=== PATIENT | female | born 1930 | race Caucasian/White ===

== ENCOUNTER 2017-07-18 06:42 | Emergency (ER) | payer MEDICARE ==
[~2017-07-18] VITALS: Ht 162.6 cm; Wt 80.0 kg
[2017-07-18 07:22] VITALS: BP 132/87
== END 2017-07-18 09:50 | disposition home or self-care (01) ==
LOC: ER 06:42
DX: B37.49 Other urogenital candidiasis (principal); B37.89 Other sites of candidiasis; F41.9 Anxiety disorder, unspecified; I10 Essential (primary) hypertension; K21.9 Gastro-esophageal reflux disease without esophagitis; Z90.710 Acquired absence of both cervix and uterus
CPT/HCPCS: 99283

== ENCOUNTER 2017-12-02 14:45 | Emergency (ER) | payer MEDICARE, MEDICAID ==
[~2017-12-02] VITALS: Ht 162.6 cm; Wt 58.0 kg
[2017-12-02 17:01] VITALS: BP 106/60
== END 2017-12-02 17:02 | disposition left against medical advice (07) ==
LOC: ER 15:00
DX: Z53.21 Procedure and treatment not carried out due to patient leaving prior to being seen by health care provider (principal)

== ENCOUNTER 2018-04-25 10:14 | Inpatient (IN) | payer MEDICARE, MEDICAID ==
[~2018-04-25] VITALS: Ht 162.6 cm; Wt 41.7 kg
[2018-04-25] MEDS ORDERED: MELA3TAB PO (10:36)
[2018-04-25] MEDS ORDERED: LISI-604 PO (10:36)
[2018-04-25] MEDS ORDERED: GABA-533 PO (10:36)
[2018-04-25] MEDS ORDERED: TRAM50TA94 PO (10:36)
[2018-04-25] MEDS ORDERED: FAMO-135 PO (10:36)
[2018-04-25] MEDS ORDERED: NITR0.4T SL (10:36)
[2018-04-25] MEDS ORDERED: SODIUM CHLORIDE 0.9% 1,000 ML IV ONE ×2 (10:58→13:15)
[2018-04-25 11:17] LABS: HEMATOCRIT. 35.3 % (36.0-48.0); HEMOGLOBIN. 11.6 g/dL (12.0-16.0); MEAN CORPUSCULAR HEMOGLOBIN 30.9 pg (28.0-32.0); MEAN CORPUSCULAR VOLUME 93.9 fL (81.0-99.0); MEAN PLATELET VOLUME 8.8 fl (7.4-10.4); PLATELET 158 x1000/uL (130-400); RED BLOOD CELL COUNT 3.75 mill/uL (4.2-5.4); RED CELL DISTRIBUTION WIDTH 15.9 % (11.6-14.6)
[2018-04-25 11:24] LABS: CHLORIDE 103 mEq/L (98-107)
[2018-04-25 11:35] LABS: PLATELET ESTIMATE NORMAL
[2018-04-25] MEDS ORDERED: ONDANSETRON HCL 4MG/2ML INJ IV PRN (11:45)
[2018-04-25] MEDS ORDERED: ENOXAPARIN 40MG/0.4ML SYR SUBCUT SCH (11:45)
[2018-04-25] MEDS ORDERED: VANCOMYCIN 1 G PREMIX 200 ML IV SCH (11:45)
[2018-04-25] MEDS ORDERED: IPRATROPIUM/ALBUTEROL 0.5-3(2.5)MG/3ML NEB HHN SCH (11:45)
[2018-04-25] MEDS ORDERED: PIPERACILLIN/TAZ 3.375G PREMIX 50 ML IV SCH (11:45)
[2018-04-25] MEDS ORDERED: NITROGLYCERIN 0.4MG TABLET SL SL PRN (11:45)
[2018-04-25] MEDS ORDERED: IPRATROPIUM/ALBUTEROL 0.5-3(2.5)MG/3ML NEB INH PRN (11:45)
[2018-04-25] MEDS ORDERED: DOCUSATE SODIUM 100MG CAPSULE PO PRN (11:45)
[2018-04-25] MEDS ORDERED: GUAIFENESIN 200MG/10ML SUGAR FREE UDC PO PRN (11:45)
[2018-04-25] MEDS ORDERED: MAGNESIUM/ALUMINUM HYDROXIDE/SIMETHICONE 30ML UDC PO PRN (11:45)
[2018-04-25] MEDS ORDERED: CEFTRIAXONE 1 G PREMIX 50 ML IV ONE (13:15)
[2018-04-25 13:47] LABS: CLARITY URINE CLOUDY (CLEAR); COLOR URINE YELLOW (YELLOW); KETONES URINE TRACE (NEGATIVE); LEUKOCYTE ESTERASE URINE 3+ (NEGATIVE); NITRITE URINE POSITIVE (NEGATIVE); OCCULT BLOOD URINE 2+ (NEGATIVE); PH URINE 5.5 (4.5-8.0); PROTEIN URINE 1+ (NEGATIVE); SPECIFIC GRAVITY URINE 1.015 (1.005-1.030); UROBILINOGEN URINE 0.2 E.U./dL (0.2-1.0)
[2018-04-25] MEDS ORDERED: PIPERACILLIN/TAZ 3.375G PREMIX 50 ML IV NR (13:51)
[2018-04-25] MEDS ORDERED: METHYLPREDNISOLONE SOD SUCC 125 MG/2 ML VIAL IV NR (13:51)
[2018-04-25] MEDS ORDERED: KETOROLAC 15MG/ML VIAL IV PRN (16:22)
[2018-04-25] MEDS ORDERED: TRAMADOL 50MG TABLET PO PRN (16:30)
[2018-04-25 17:19] LABS: CREATINE KINASE MB FRACTION 1.3 ng/mL (0.5-3.6)
[2018-04-25] MEDS: METHYLPREDNISOLONE SOD SUCC 125 MG/2 ML VIAL IV SCH (18:55)
[2018-04-25 20:00] VITALS: BP 139/70
[2018-04-25] MEDS ORDERED: VANCOMYCIN 1500MG in DEXTROSE 5% WATER 250ML IV NR (20:00)
[2018-04-25] MEDS: GUAIFENESIN/DM 600MG/30MG ER TAB 12HR PO SCH (21:00)
[2018-04-25] MEDS: ASCORBIC ACID 500 MG TABLET PO SCH (21:00)
[2018-04-25] MEDS ORDERED: FAMOTIDINE 20MG TABLET PO SCH (21:00)
[2018-04-25] MEDS ORDERED: NA PHOS,M-B/NA PHOS,DI-BA ENEMA 118ML PR PRN (21:00)
[2018-04-25] MEDS: ENOXAPARIN 30MG/0.3ML SYR SUBCUT SCH (21:21)
[2018-04-25] MEDS: IPRATROPIUM/ALBUTEROL 0.5-3(2.5)MG/3ML NEB HHN SCH (21:46)
[2018-04-25] MEDS: PIPERACILLIN/TAZ 2.25G PREMIX 50 ML IV SCH (22:17)
[2018-04-25] MEDS ORDERED: POLY15DR55 EACHEYE (22:41)
[2018-04-25] MEDS ORDERED: HYDR-4001 MT (22:41)
[2018-04-25] MEDS ORDERED: DOCU-138 MT (22:41)
[2018-04-25] MEDS ORDERED: ACET-2178 MT (22:41)
[2018-04-25] MEDS ORDERED: LIDO700A30 TP (22:41)
[2018-04-26] VITALS: BP 110/55
[2018-04-26 00:55] LABS: CREATINE KINASE MB FRACTION 1.5 ng/mL (0.5-3.6)
[2018-04-26] MEDS: IPRATROPIUM/ALBUTEROL 0.5-3(2.5)MG/3ML NEB HHN SCH ×6 (01:23→20:10)
[2018-04-26] MEDS: METHYLPREDNISOLONE SOD SUCC 125 MG/2 ML VIAL IV SCH ×3 (02:18→18:50)
[2018-04-26 04:00] VITALS: BP 126/50
[2018-04-26] MEDS: PIPERACILLIN/TAZ 2.25G PREMIX 50 ML IV SCH ×4 (04:05→22:47)
[2018-04-26 08:00] VITALS: BP 132/103
[2018-04-26] MEDS: ASCORBIC ACID 500 MG TABLET PO SCH ×2 (08:55→20:30)
[2018-04-26] MEDS: GUAIFENESIN/DM 600MG/30MG ER TAB 12HR PO SCH ×2 (08:55→20:30)
[2018-04-26] MEDS: ASPIRIN 325MG EC TABLET PO SCH (08:55)
[2018-04-26] MEDS: ZINC SULFATE 220 MG ( 50 ) CAPSULE PO SCH (08:55)
[2018-04-26] MEDS: FAMOTIDINE 20MG TABLET PO SCH (08:56)
[2018-04-26 12:00] VITALS: BP 112/69
[2018-04-26 16:00] VITALS: BP 117/45
[2018-04-26 20:00] VITALS: BP 133/66
[2018-04-26] MEDS: ENOXAPARIN 30MG/0.3ML SYR SUBCUT SCH (20:30)
[2018-04-26] MEDS: MORPHINE SULFATE 4 MG/ML CPJ (NOT FOR IM USE) IV PRN (23:33)
[2018-04-27] VITALS: BP 126/67
[2018-04-27] MEDS: IPRATROPIUM/ALBUTEROL 0.5-3(2.5)MG/3ML NEB HHN SCH ×6 (00:51→20:58)
[2018-04-27] MEDS: METHYLPREDNISOLONE SOD SUCC 125 MG/2 ML VIAL IV SCH ×3 (02:11→18:08)
[2018-04-27 04:00] VITALS: BP 140/76
[2018-04-27] MEDS: PIPERACILLIN/TAZ 2.25G PREMIX 50 ML IV SCH ×2 (05:26→10:38)
[2018-04-27] MEDS: LORAZEPAM 0.5MG TABLET PO PRN (05:26)
[2018-04-27 07:22] LABS: HEMATOCRIT. 32.6 % (36.0-48.0); HEMOGLOBIN. 10.9 g/dL (12.0-16.0); MEAN CORPUSCULAR HEMOGLOBIN 31.1 pg (28.0-32.0); MEAN CORPUSCULAR VOLUME 92.8 fL (81.0-99.0); MEAN PLATELET VOLUME 9.5 fl (7.4-10.4); PLATELET 165 x1000/uL (130-400); RED BLOOD CELL COUNT 3.51 mill/uL (4.2-5.4); RED CELL DISTRIBUTION WIDTH 15.7 % (11.6-14.6)
[2018-04-27 08:24] VITALS: BP 140/59
[2018-04-27] MEDS: ASPIRIN 325MG EC TABLET PO SCH (08:56)
[2018-04-27] MEDS: GUAIFENESIN/DM 600MG/30MG ER TAB 12HR PO SCH ×2 (08:56→22:13)
[2018-04-27] MEDS: ASCORBIC ACID 500 MG TABLET PO SCH ×2 (08:56→20:59)
[2018-04-27] MEDS: ZINC SULFATE 220 MG ( 50 ) CAPSULE PO SCH (08:57)
[2018-04-27] MEDS: FAMOTIDINE 20MG TABLET PO SCH (08:57)
[2018-04-27 12:14] VITALS: BP 146/84
[2018-04-27] MEDS: MEROPENEM 1,000 MG in SODIUM CHLORIDE 0.9% 100 ML IV SCH (16:25)
[2018-04-27 16:31] VITALS: BP 155/77
[2018-04-27 17:03] LABS: PLATELET ESTIMATE NORMAL
[2018-04-27 20:39] VITALS: BP 153/72
[2018-04-27] MEDS: ENOXAPARIN 40MG/0.4ML SYR SUBCUT SCH (20:59)
[2018-04-27] MEDS: ZOLPIDEM TARTRATE 5MG TABLET PO PRN (20:59)
[2018-04-27] MEDS: DIPHENHYDRAMINE 50MG/ML VIAL IV PRN (23:47)
[2018-04-27] MEDS: MORPHINE SULFATE 4 MG/ML CPJ (NOT FOR IM USE) IV PRN (23:48)
[2018-04-28] VITALS: BP_SYST 150; BP_SYST 153; BP_DIAS 61; BP_DIAS 77
[2018-04-28] MEDS: LORAZEPAM 0.5MG TABLET PO PRN ×3 (01:55→18:31)
[2018-04-28] MEDS: METHYLPREDNISOLONE SOD SUCC 125 MG/2 ML VIAL IV SCH ×3 (03:04→18:31)
[2018-04-28] MEDS: MEROPENEM 1,000 MG in SODIUM CHLORIDE 0.9% 100 ML IV SCH ×2 (03:04→16:44)
[2018-04-28 04:00] VITALS: BP 153/77
[2018-04-28] MEDS: IPRATROPIUM/ALBUTEROL 0.5-3(2.5)MG/3ML NEB HHN SCH ×6 (04:18→22:06)
[2018-04-28 06:50] LABS: HEMATOCRIT. 33.1 % (36.0-48.0); HEMOGLOBIN. 11.1 g/dL (12.0-16.0); MEAN CORPUSCULAR HEMOGLOBIN 30.8 pg (28.0-32.0); MEAN CORPUSCULAR VOLUME 92.3 fL (81.0-99.0); MEAN PLATELET VOLUME 9.3 fl (7.4-10.4); PLATELET 186 x1000/uL (130-400); RED BLOOD CELL COUNT 3.59 mill/uL (4.2-5.4); RED CELL DISTRIBUTION WIDTH 15.8 % (11.6-14.6)
[2018-04-28 08:00] VITALS: BP 151/73
[2018-04-28 08:05] VITALS: BP 151/73
[2018-04-28] MEDS: ZINC SULFATE 220 MG ( 50 ) CAPSULE PO SCH (08:44)
[2018-04-28] MEDS: FAMOTIDINE 20MG TABLET PO SCH (08:44)
[2018-04-28] MEDS: ASCORBIC ACID 500 MG TABLET PO SCH ×2 (08:44→21:04)
[2018-04-28] MEDS: GUAIFENESIN/DM 600MG/30MG ER TAB 12HR PO SCH ×2 (08:45→21:04)
[2018-04-28] MEDS: ASPIRIN 325MG EC TABLET PO SCH (08:45)
[2018-04-28 16:32] VITALS: BP 175/94
[2018-04-28 18:58] LABS: PLATELET ESTIMATE NORMAL
[2018-04-28 20:00] VITALS: BP 102/45
[2018-04-28] MEDS: ENOXAPARIN 40MG/0.4ML SYR SUBCUT SCH (21:05)
[2018-04-29 00:17] VITALS: BP 105/48
[2018-04-29] MEDS: IPRATROPIUM/ALBUTEROL 0.5-3(2.5)MG/3ML NEB HHN SCH ×4 (01:41→20:53)
[2018-04-29] MEDS: METHYLPREDNISOLONE SOD SUCC 125 MG/2 ML VIAL IV SCH ×3 (03:42→18:35)
[2018-04-29] MEDS: MEROPENEM 1,000 MG in SODIUM CHLORIDE 0.9% 100 ML IV SCH ×2 (03:43→16:41)
[2018-04-29 07:52] VITALS: BP 177/117
[2018-04-29] MEDS: ASCORBIC ACID 500 MG TABLET PO SCH ×2 (08:24→20:49)
[2018-04-29] MEDS: GUAIFENESIN/DM 600MG/30MG ER TAB 12HR PO SCH ×3 (08:24→20:49)
[2018-04-29] MEDS: ZINC SULFATE 220 MG ( 50 ) CAPSULE PO SCH (08:24)
[2018-04-29] MEDS: LORAZEPAM 0.5MG TABLET PO PRN ×3 (08:24→18:24)
[2018-04-29] MEDS: FAMOTIDINE 20MG TABLET PO SCH (08:24)
[2018-04-29] MEDS: ASPIRIN 325MG EC TABLET PO SCH (08:24)
[2018-04-29 11:54] VITALS: BP 176/110
[2018-04-29 16:26] VITALS: BP 168/86
[2018-04-29 20:00] VITALS: BP 159/92
[2018-04-29] MEDS: DIPHENHYDRAMINE 50MG/ML VIAL IV PRN (20:49)
[2018-04-29] MEDS: ENOXAPARIN 40MG/0.4ML SYR SUBCUT SCH (20:49)
[2018-04-29] MEDS: ZOLPIDEM TARTRATE 5MG TABLET PO PRN (23:57)
[2018-04-30 00:15] VITALS: BP 173/106
[2018-04-30] MEDS: CLONIDINE 0.1MG TABLET PO PRN ×4 (00:35→20:44)
[2018-04-30] MEDS: IPRATROPIUM/ALBUTEROL 0.5-3(2.5)MG/3ML NEB HHN SCH ×6 (00:58→21:10)
[2018-04-30 04:00] VITALS: BP 172/91
[2018-04-30] MEDS: METHYLPREDNISOLONE SOD SUCC 125 MG/2 ML VIAL IV SCH ×3 (04:08→19:57)
[2018-04-30] MEDS: MEROPENEM 1,000 MG in SODIUM CHLORIDE 0.9% 100 ML IV SCH ×2 (04:09→16:08)
[2018-04-30 07:35] LABS: HEMATOCRIT. 35.7 % (36.0-48.0); HEMOGLOBIN. 11.9 g/dL (12.0-16.0); MEAN CORPUSCULAR HEMOGLOBIN 30.7 pg (28.0-32.0); MEAN CORPUSCULAR VOLUME 92.2 fL (81.0-99.0); MEAN PLATELET VOLUME 8.9 fl (7.4-10.4); PLATELET 251 x1000/uL (130-400); RED BLOOD CELL COUNT 3.87 mill/uL (4.2-5.4)
[2018-04-30] MEDS: ASPIRIN 325MG EC TABLET PO SCH (08:28)
[2018-04-30] MEDS: FAMOTIDINE 20MG TABLET PO SCH (08:28)
[2018-04-30] MEDS: ZINC SULFATE 220 MG ( 50 ) CAPSULE PO SCH (08:28)
[2018-04-30] MEDS: ASCORBIC ACID 500 MG TABLET PO SCH ×2 (08:28→20:00)
[2018-04-30] MEDS: GUAIFENESIN/DM 600MG/30MG ER TAB 12HR PO SCH ×2 (08:29→20:00)
[2018-04-30 12:00] VITALS: BP 162/100
[2018-04-30 16:00] VITALS: BP 139/82
[2018-04-30 16:06] LABS: PLATELET ESTIMATE NORMAL
[2018-04-30] MEDS: DIPHENHYDRAMINE 50MG/ML VIAL IV PRN (19:59)
[2018-04-30 20:00] VITALS: BP 171/85
[2018-04-30] MEDS: ENOXAPARIN 40MG/0.4ML SYR SUBCUT SCH (20:00)
[2018-04-30] MEDS: ACETAMINOPHEN 325MG TABLET PO PRN (20:44)
[2018-05-01] MEDS: IPRATROPIUM/ALBUTEROL 0.5-3(2.5)MG/3ML NEB HHN SCH ×4 (00:17→12:57)
[2018-05-01 00:23] VITALS: BP 142/83
[2018-05-01 04:00] VITALS: BP 122/74
[2018-05-01] MEDS: METHYLPREDNISOLONE SOD SUCC 125 MG/2 ML VIAL IV SCH ×2 (04:01→11:29)
[2018-05-01] MEDS: MEROPENEM 1,000 MG in SODIUM CHLORIDE 0.9% 100 ML IV SCH ×2 (04:01→15:49)
[2018-05-01 08:12] VITALS: BP 156/94
[2018-05-01] MEDS: ASCORBIC ACID 500 MG TABLET PO SCH (10:39)
[2018-05-01] MEDS: FAMOTIDINE 20MG TABLET PO SCH (10:39)
[2018-05-01] MEDS: GUAIFENESIN/DM 600MG/30MG ER TAB 12HR PO SCH (10:39)
[2018-05-01] MEDS: ZINC SULFATE 220 MG ( 50 ) CAPSULE PO SCH (10:39)
[2018-05-01] MEDS: ASPIRIN 325MG EC TABLET PO SCH (10:39)
[2018-05-01] MEDS: ACETAMINOPHEN 325MG TABLET PO PRN (10:41)
[2018-05-01 12:00] VITALS: BP 159/90
[2018-05-01] MEDS ORDERED: LIDOCAINE HCL 1% 10 MG/ML 10ML VIAL ONE (14:38)
[2018-05-01] MEDS ORDERED: SODIUM BICARBONATE 4% (2.4MEQ) 5ML VIAL IV ONE (14:38)
[2018-05-01 14:41] VITALS: BP 159/96
[2018-05-01] MEDS: CLONIDINE 0.1MG TABLET PO PRN (16:22)
== END 2018-05-01 17:26 | DRG 871 ==
LOC: ER 10:14 → EDBEDREQSVC 13:00 → 6WST 13:12 → EDBEDREQ 13:15 → EDBEDREQTM 13:15 → ENRESERV 17:18 → CANRESERV 17:18 → ENRESERV 17:33
PROVIDERS: ADMIT Internal Medicine; ATTEND Internal Medicine
PROC: 02HV33Z Insertion of Infusion Device into Superior Vena Cava, Percutaneous Approach (ICD-10-PCS; principal; 2018-05-01)
PROC: B548ZZA Ultrasonography of Superior Vena Cava, Guidance (ICD-10-PCS; 2018-05-01)
DX: A41.51 Sepsis due to Escherichia coli [E. coli] (principal); J96.00 Acute respiratory failure, unspecified whether with hypoxia or hypercapnia; G92 Toxic encephalopathy; N17.0 Acute kidney failure with tubular necrosis; J18.9 Pneumonia, unspecified organism; J44.1 Chronic obstructive pulmonary disease with (acute) exacerbation; J44.0 Chronic obstructive pulmonary disease with (acute) lower respiratory infection; E44.1 Mild protein-calorie malnutrition; N39.0 Urinary tract infection, site not specified; Z68.1 Body mass index [BMI] 19.9 or less, adult; E66.9 Obesity, unspecified; L98.8 Other specified disorders of the skin and subcutaneous tissue; I10 Essential (primary) hypertension; M19.90 Unspecified osteoarthritis, unspecified site; E86.0 Dehydration; K21.9 Gastro-esophageal reflux disease without esophagitis; Z79.899 Other long term (current) drug therapy
CPT/HCPCS: 36415; 36569; 70450; 71045; 76937; 80048; 80053; 80061; 81003; 82550; 82553; 83036; 84134; 84484; 85025; 87040; 87077; 87086; 87186; 93005; 93306; 93970; 94640; 96374; 96375; 99285; A6261; C1725; C1893; J0696; J1200; J1650; J1885; J2185; J2270; J2543; J2930; J3370; J3490; J7030; J7050; J7060; J7620; A4315

== ENCOUNTER 2018-10-13 16:11 | Inpatient (IN) | payer MEDICARE, MEDICAID ==
[~2018-10-13] VITALS: Ht 167.6 cm; Wt 92.6 kg
[~2018-10-13 16:11] MED LIST: ACET-2178 MT; DOCU-138 MT; FAMO-135 PO; GABA-533 PO; HYDR-4001 MT; LIDO700A30 TP; LISI-604 PO; MELA3TAB PO; NITR0.4T SL; POLY15DR55 EACHEYE; TRAM50TA94 PO
[2018-10-13] MEDS ORDERED: ASPIRIN 81MG TABLET PO ONE (18:15)
[2018-10-13 18:38] LABS: BASOPHILS % 0.9 % (0.0-2.0); EOSINOPHILS % 1.5 % (0.0-5.0); HEMOGLOBIN. 12.8 g/dL (12.0-16.0); LYMPHOCYTES % 32.6 % (20.0-50.0); MEAN CORPUSCULAR HEMOGLOBIN 29.4 pg (28.0-32.0); MEAN CORPUSCULAR VOLUME 92.1 fL (81.0-99.0); MEAN PLATELET VOLUME 8.9 fl (7.4-10.4); MONOCYTES % 7.4 % (2.0-8.0); NEUTROPHILS % 57.6 % (40.0-76.0); PLATELET 238 x1000/uL (130-400); RED BLOOD CELL COUNT 4.35 mill/uL (4.2-5.4); RED CELL DISTRIBUTION WIDTH 16.1 % (11.6-14.6)
[2018-10-13 18:43] LABS: CHLORIDE 112 mEq/L (98-107)
[2018-10-13 18:46] LABS: PARTIAL THROMBOPLASTIN TIME 25.2 sec (23.4-31.0); PROTHROMBIN TIME 10.1 sec (9.1-11.1)
[2018-10-13] MEDS ORDERED: IPRATROPIUM/ALBUTEROL 0.5-3(2.5)MG/3ML NEB HHN ONE (19:30)
[2018-10-13] MEDS ORDERED: NITROGLYCERIN 0.4MG TABLET SL SL PRN (20:30)
[2018-10-13] MEDS ORDERED: GUAIFENESIN 200MG/10ML SUGAR FREE UDC PO PRN (20:30)
[2018-10-13] MEDS ORDERED: IPRATROPIUM/ALBUTEROL 0.5-3(2.5)MG/3ML NEB INH PRN (20:30)
[2018-10-13] MEDS ORDERED: MAGNESIUM/ALUMINUM HYDROXIDE/SIMETHICONE 30ML UDC PO PRN (20:30)
[2018-10-13] MEDS ORDERED: CLONIDINE 0.1MG TABLET PO PRN (20:30)
[2018-10-13] MEDS ORDERED: ONDANSETRON HCL 4MG/2ML INJ IV PRN (20:30)
[2018-10-13] MEDS ORDERED: ASCORBIC ACID 500 MG TABLET PO SCH (21:00)
[2018-10-13] MEDS ORDERED: FAMOTIDINE 20MG TABLET PO SCH (21:00)
[2018-10-13] MEDS ORDERED: NA PHOS,M-B/NA PHOS,DI-BA ENEMA 118ML PR PRN (21:30)
[2018-10-13] MEDS ORDERED: LEVOFLOXACIN 500MG PREMIX 100 ML IV SCH ×2 (22:00)
[2018-10-13 22:31] LABS: CREATINE KINASE 52 IU/L (26-192)
[2018-10-13 22:32] LABS: CREATINE KINASE MB FRACTION 1.9 ng/mL (0.5-3.6)
[2018-10-13 23:52] LABS: CLARITY URINE CLEAR (CLEAR); COLOR URINE YELLOW (YELLOW); KETONES URINE NEGATIVE (NEGATIVE); LEUKOCYTE ESTERASE URINE NEGATIVE (NEGATIVE); NITRITE URINE NEGATIVE (NEGATIVE); OCCULT BLOOD URINE NEGATIVE (NEGATIVE); PH URINE 5.5 (4.5-8.0); PROTEIN URINE NEGATIVE (NEGATIVE); SPECIFIC GRAVITY URINE 1.012 (1.005-1.030); UROBILINOGEN URINE 0.2 E.U./dL (0.2-1.0)
[2018-10-14] MEDS ORDERED: DILTIAZEM HCL 60MG TABLET PO SCH
[2018-10-14] MEDS: IPRATROPIUM/ALBUTEROL 0.5-3(2.5)MG/3ML NEB HHN SCH ×3 (00:11→21:31)
[2018-10-14] MEDS ORDERED: LORAZEPAM 2MG/ML CPJ IV ONE (02:45)
[2018-10-14] MEDS: METHYLPREDNISOLONE SOD SUCC 125 MG/2 ML VIAL IV SCH ×4 (04:59→23:04)
[2018-10-14 06:31] LABS: CREATINE KINASE 49 IU/L (26-192)
[2018-10-14 06:32] LABS: CREATINE KINASE MB FRACTION 1.9 ng/mL (0.5-3.6)
[2018-10-14] MEDS: FAMOTIDINE 20MG TABLET PO SCH (10:49)
[2018-10-14] MEDS: ZINC SULFATE 220 MG ( 50 ) CAPSULE PO SCH (10:49)
[2018-10-14] MEDS: ASPIRIN 325MG EC TABLET PO SCH (10:49)
[2018-10-14] MEDS: DILTIAZEM HCL 60MG TABLET PO SCH ×3 (11:04→23:15)
[2018-10-14] MEDS ORDERED: RIVAROXABAN 10 MG TABLET PO SCH (17:00)
[2018-10-14] MEDS ORDERED: RIVAROXABAN 20 MG TABLET PO NR (18:30)
[2018-10-14] MEDS: ASCORBIC ACID 500 MG TABLET PO SCH (19:17)
[2018-10-14 22:00] VITALS: BP_SYST 145; BP_SYST 149; BP_DIAS 95
[2018-10-14] MEDS ORDERED: LEVOFLOXACIN 250MG PREMIX 50 ML IV SCH (22:00)
[2018-10-14] MEDS: LEVOFLOXACIN 250MG PREMIX 50 ML IV SCH (23:04)
[2018-10-14] MEDS: ZOLPIDEM TARTRATE 5MG TABLET PO PRN (23:18)
[2018-10-15] VITALS: BP 158/77
[2018-10-15] MEDS: MORPHINE SULFATE 4 MG/ML CPJ (NOT FOR IM USE) IV PRN ×4 (00:49→20:03)
[2018-10-15] MEDS: IPRATROPIUM/ALBUTEROL 0.5-3(2.5)MG/3ML NEB HHN SCH ×6 (01:24→21:47)
[2018-10-15] MEDS: ACETAMINOPHEN 325MG TABLET PO PRN (02:30)
[2018-10-15] MEDS: LORAZEPAM 0.5MG TABLET PO PRN ×2 (02:30→10:09)
[2018-10-15 04:45] VITALS: BP 148/66
[2018-10-15] MEDS: DILTIAZEM HCL 60MG TABLET PO SCH ×4 (06:16→23:55)
[2018-10-15] MEDS: TRAMADOL 50MG TABLET PO PRN (06:16)
[2018-10-15] MEDS: METHYLPREDNISOLONE SOD SUCC 125 MG/2 ML VIAL IV SCH ×3 (06:17→21:26)
[2018-10-15 08:00] VITALS: BP 167/79
[2018-10-15] MEDS: FAMOTIDINE 20MG TABLET PO SCH (10:09)
[2018-10-15] MEDS: ASCORBIC ACID 500 MG TABLET PO SCH ×2 (10:09→20:02)
[2018-10-15] MEDS: ZINC SULFATE 220 MG ( 50 ) CAPSULE PO SCH (10:09)
[2018-10-15] MEDS: ASPIRIN 325MG EC TABLET PO SCH (10:09)
[2018-10-15 12:00] VITALS: BP 149/86
[2018-10-15 16:13] VITALS: BP 95/46
[2018-10-15] MEDS: RIVAROXABAN 15 MG TABLET PO SCH (17:58)
[2018-10-15 20:54] VITALS: BP 138/47
[2018-10-15] MEDS: LEVOFLOXACIN 250MG PREMIX 50 ML IV SCH (23:54)
[2018-10-16 00:24] VITALS: BP 118/52
[2018-10-16] MEDS: IPRATROPIUM/ALBUTEROL 0.5-3(2.5)MG/3ML NEB HHN SCH ×6 (00:30→22:54)
[2018-10-16 04:00] VITALS: BP 126/53
[2018-10-16] MEDS: METHYLPREDNISOLONE SOD SUCC 125 MG/2 ML VIAL IV SCH ×3 (05:17→21:14)
[2018-10-16] MEDS: DILTIAZEM HCL 60MG TABLET PO SCH ×3 (05:17→16:02)
[2018-10-16] MEDS: MORPHINE SULFATE 4 MG/ML CPJ (NOT FOR IM USE) IV PRN ×2 (07:41→20:08)
[2018-10-16] MEDS: ZINC SULFATE 220 MG ( 50 ) CAPSULE PO SCH (07:41)
[2018-10-16] MEDS: FAMOTIDINE 20MG TABLET PO SCH (07:41)
[2018-10-16] MEDS: ASCORBIC ACID 500 MG TABLET PO SCH ×2 (07:41→20:07)
[2018-10-16] MEDS: ASPIRIN 325MG EC TABLET PO SCH (07:44)
[2018-10-16 08:00] VITALS: BP 122/54
[2018-10-16] MEDS: DIPHENHYDRAMINE 25MG CAPSULE PO PRN ×2 (10:20→22:25)
[2018-10-16] MEDS: LORAZEPAM 0.5MG TABLET PO PRN ×2 (10:20→18:16)
[2018-10-16 12:00] VITALS: BP 105/50
[2018-10-16 16:00] VITALS: BP 106/46
[2018-10-16] MEDS: RIVAROXABAN 15 MG TABLET PO SCH (16:02)
[2018-10-16] MEDS ORDERED: CLON0.1T PO (18:38)
[2018-10-16] MEDS ORDERED: ALPR-339 PO (18:43)
[2018-10-16] MEDS ORDERED: ALBU18HF2 IH (18:44)
[2018-10-16 20:00] VITALS: BP 124/51
[2018-10-16] MEDS: LEVOFLOXACIN 250MG PREMIX 50 ML IV SCH (22:25)
[2018-10-17] VITALS: BP 127/54
[2018-10-17] MEDS: DILTIAZEM HCL 60MG TABLET PO SCH ×4 (01:09→18:32)
[2018-10-17] MEDS: IPRATROPIUM/ALBUTEROL 0.5-3(2.5)MG/3ML NEB HHN SCH ×6 (01:46→21:15)
[2018-10-17 04:30] VITALS: BP 107/80
[2018-10-17] MEDS: METHYLPREDNISOLONE SOD SUCC 125 MG/2 ML VIAL IV SCH ×3 (06:22→22:27)
[2018-10-17 08:00] VITALS: BP 121/64
[2018-10-17] MEDS: ASCORBIC ACID 500 MG TABLET PO SCH ×2 (10:11→22:27)
[2018-10-17] MEDS: ZINC SULFATE 220 MG ( 50 ) CAPSULE PO SCH (10:11)
[2018-10-17] MEDS: FAMOTIDINE 20MG TABLET PO SCH (10:11)
[2018-10-17] MEDS: ASPIRIN 325MG EC TABLET PO SCH (10:11)
[2018-10-17] MEDS: MORPHINE SULFATE 4 MG/ML CPJ (NOT FOR IM USE) IV PRN (11:48)
[2018-10-17 12:00] VITALS: BP 106/72
[2018-10-17] MEDS: LORAZEPAM 0.5MG TABLET PO PRN (15:08)
[2018-10-17 16:40] VITALS: BP 118/61
[2018-10-17] MEDS: RIVAROXABAN 15 MG TABLET PO SCH (18:31)
[2018-10-17] MEDS: DIPHENHYDRAMINE 25MG CAPSULE PO PRN (18:57)
[2018-10-17 20:00] VITALS: BP 125/69
[2018-10-17] MEDS: ZOLPIDEM TARTRATE 5MG TABLET PO PRN (22:28)
[2018-10-18] VITALS: BP 135/56
[2018-10-18] MEDS: LEVOFLOXACIN 250MG PREMIX 50 ML IV SCH (00:06)
[2018-10-18] MEDS: DILTIAZEM HCL 60MG TABLET PO SCH ×2 (00:07→06:00)
[2018-10-18] MEDS: IPRATROPIUM/ALBUTEROL 0.5-3(2.5)MG/3ML NEB HHN SCH ×4 (00:30→20:32)
[2018-10-18 04:00] VITALS: BP 155/77
[2018-10-18] MEDS: MORPHINE SULFATE 4 MG/ML CPJ (NOT FOR IM USE) IV PRN (04:52)
[2018-10-18] MEDS: METHYLPREDNISOLONE SOD SUCC 125 MG/2 ML VIAL IV SCH ×3 (06:00→21:50)
[2018-10-18 08:00] VITALS: BP 116/62
[2018-10-18] MEDS: ZINC SULFATE 220 MG ( 50 ) CAPSULE PO SCH (09:00)
[2018-10-18] MEDS: ASPIRIN 325MG EC TABLET PO SCH (09:00)
[2018-10-18] MEDS: ASCORBIC ACID 500 MG TABLET PO SCH ×2 (09:00→21:51)
[2018-10-18] MEDS: FAMOTIDINE 20MG TABLET PO SCH (09:00)
[2018-10-18 12:14] VITALS: BP 112/71
[2018-10-18] MEDS: DIPHENHYDRAMINE 25MG CAPSULE PO PRN (14:10)
[2018-10-18] MEDS: TRAMADOL 50MG TABLET PO PRN (14:10)
[2018-10-18] MEDS: DILTIAZEM HCL 30MG TABLET PO SCH ×2 (14:10→17:22)
[2018-10-18 16:42] VITALS: BP 164/95
[2018-10-18] MEDS: RIVAROXABAN 15 MG TABLET PO SCH (17:22)
[2018-10-18 20:00] VITALS: BP 115/65
[2018-10-19] VITALS: BP 134/66
[2018-10-19] MEDS: DILTIAZEM HCL 30MG TABLET PO SCH ×4 (00:33→17:06)
[2018-10-19] MEDS: IPRATROPIUM/ALBUTEROL 0.5-3(2.5)MG/3ML NEB HHN SCH ×5 (01:45→23:53)
[2018-10-19] MEDS: ACETAMINOPHEN 325MG TABLET PO PRN ×3 (03:25→19:35)
[2018-10-19 04:00] VITALS: BP 124/59
[2018-10-19] MEDS: METHYLPREDNISOLONE SOD SUCC 125 MG/2 ML VIAL IV SCH (06:51)
[2018-10-19 08:30] VITALS: BP 139/71
[2018-10-19] MEDS: FAMOTIDINE 20MG TABLET PO SCH (09:35)
[2018-10-19] MEDS: ZINC SULFATE 220 MG ( 50 ) CAPSULE PO SCH (09:35)
[2018-10-19] MEDS: ASPIRIN 325MG EC TABLET PO SCH (09:35)
[2018-10-19] MEDS: ASCORBIC ACID 500 MG TABLET PO SCH ×2 (09:35→21:29)
[2018-10-19] MEDS: DIPHENHYDRAMINE 25MG CAPSULE PO PRN (09:35)
[2018-10-19 12:00] VITALS: BP 122/58
[2018-10-19] MEDS ORDERED: HALOPERIDOL LACTATE 5MG/ML VIAL IM PRN (15:30)
[2018-10-19 16:00] VITALS: BP 118/56
[2018-10-19] MEDS: RIVAROXABAN 15 MG TABLET PO SCH (17:06)
[2018-10-19 20:00] VITALS: BP 132/61
[2018-10-20] VITALS: BP 134/74
[2018-10-20] MEDS: DILTIAZEM HCL 30MG TABLET PO SCH ×4 (01:06→17:30)
[2018-10-20] MEDS: DIPHENHYDRAMINE 25MG CAPSULE PO PRN ×3 (01:06→21:33)
[2018-10-20 04:00] VITALS: BP 135/75
[2018-10-20] MEDS: IPRATROPIUM/ALBUTEROL 0.5-3(2.5)MG/3ML NEB HHN SCH ×6 (04:35→23:29)
[2018-10-20] MEDS: ACETAMINOPHEN 325MG TABLET PO PRN ×2 (05:56→11:44)
[2018-10-20 08:00] VITALS: BP 142/68
[2018-10-20] MEDS: FAMOTIDINE 20MG TABLET PO SCH (09:03)
[2018-10-20] MEDS: ASCORBIC ACID 500 MG TABLET PO SCH ×2 (09:03→21:32)
[2018-10-20] MEDS: ASPIRIN 325MG EC TABLET PO SCH (09:03)
[2018-10-20] MEDS: ZINC SULFATE 220 MG ( 50 ) CAPSULE PO SCH (09:03)
[2018-10-20] MEDS: DOCUSATE SODIUM 100MG CAPSULE PO PRN (11:44)
[2018-10-20 12:00] VITALS: BP 124/59
[2018-10-20] MEDS ORDERED: TRAMADOL 50MG TABLET PO PRN (14:00)
[2018-10-20] MEDS: KETOROLAC 15MG/ML VIAL IV PRN (15:27)
[2018-10-20 16:00] VITALS: BP 151/65
[2018-10-20] MEDS: LIDOCAINE 5% PATCH TOP SCH (16:04)
[2018-10-20] MEDS: RIVAROXABAN 15 MG TABLET PO SCH (17:30)
[2018-10-20 20:29] VITALS: BP 131/52
[2018-10-21] MEDS: DILTIAZEM HCL 30MG TABLET PO SCH ×4 (00:10→17:04)
[2018-10-21 00:35] VITALS: BP 134/67
[2018-10-21] MEDS: KETOROLAC 15MG/ML VIAL IV PRN ×2 (01:38→08:40)
[2018-10-21 04:00] VITALS: BP 135/61
[2018-10-21] MEDS: IPRATROPIUM/ALBUTEROL 0.5-3(2.5)MG/3ML NEB HHN SCH ×4 (05:04→15:55)
[2018-10-21 08:00] VITALS: BP 134/61
[2018-10-21] MEDS: ZINC SULFATE 220 MG ( 50 ) CAPSULE PO SCH (08:39)
[2018-10-21] MEDS: FAMOTIDINE 20MG TABLET PO SCH (08:39)
[2018-10-21] MEDS: ASPIRIN 325MG EC TABLET PO SCH (08:39)
[2018-10-21] MEDS: ASCORBIC ACID 500 MG TABLET PO SCH (08:39)
[2018-10-21] MEDS: LIDOCAINE 5% PATCH TOP SCH (08:41)
[2018-10-21 12:00] VITALS: BP 133/63
[2018-10-21] MEDS: DOCUSATE SODIUM 100MG CAPSULE PO PRN (12:39)
[2018-10-21 16:00] VITALS: BP 109/62
[2018-10-21] MEDS: RIVAROXABAN 15 MG TABLET PO SCH (17:03)
[2018-10-21 17:10] VITALS: BP_SYST 109; BP_SYST 124; BP_DIAS 59; BP_DIAS 62
== END 2018-10-21 20:25 | DRG 192 ==
LOC: ER 16:11 → 8WST 20:01 → EDBEDREQTM 10-14 07:43 → EDBEDREQ 10-14 07:43 → EDBEDREQDT 10-14 07:43 → ENRESERV 10-14 20:51
PROVIDERS: ADMIT Internal Medicine; ATTEND Internal Medicine
DX: J44.1 Chronic obstructive pulmonary disease with (acute) exacerbation (principal); I48.91 Unspecified atrial fibrillation; E66.9 Obesity, unspecified; M19.90 Unspecified osteoarthritis, unspecified site; I10 Essential (primary) hypertension; Z87.440 Personal history of urinary (tract) infections; Z87.891 Personal history of nicotine dependence; Z68.32 Body mass index [BMI] 32.0-32.9, adult
CPT/HCPCS: 36415; 71045; 80061; 82550; 82553; 83036; 83880; 84484; 93005; 93306; 93970; 94640; 96365; 96366; 96375; 97116; 97162; 97166; 97530; 97535; 99285; J1885; J1956; J2060; J2270; J2930; J7050; J7620; Q0163

== ENCOUNTER 2019-03-04 07:59 | Emergency (ER) | payer MEDICAID, MEDICARE ==
[~2019-03-04] VITALS: Ht 165.1 cm; Wt 100.0 kg
[~2019-03-04 07:59] MED LIST changes: +ALBU18HF2 IH; +ALPR-339 PO; +CLON0.1T PO; -DOCU-138 MT; -FAMO-135 PO; -LIDO700A30 TP; -MELA3TAB PO; -NITR0.4T SL; -POLY15DR55 EACHEYE
[2019-03-04 08:45] VITALS: BP 196/88
[2019-03-04] MEDS ORDERED: HYDROCODONE/ACETAMINOPHEN 5/325MG TABLET PO ONE (09:00)
== END 2019-03-04 09:23 | disposition home or self-care (01) ==
LOC: ER 08:33
DX: M25.512 Pain in left shoulder (principal); M25.511 Pain in right shoulder; I10 Essential (primary) hypertension
CPT/HCPCS: 99282

== ENCOUNTER 2019-04-17 15:32 | Emergency (ER) | payer MEDICAID, MEDICARE ==
[~2019-04-17] VITALS: Ht 160 cm; Wt 90.0 kg
[2019-04-17] MEDS ORDERED: HYDROCODONE/ACETAMINOPHEN 5/325MG TABLET PO ONE (18:45)
[2019-04-18] MEDS ORDERED: CLONIDINE 0.1MG TABLET PO ONE (00:45)
[2019-04-18 00:53] VITALS: BP 185/92
== END 2019-04-18 00:54 | disposition home or self-care (01) ==
LOC: ER 15:32
DX: M25.571 Pain in right ankle and joints of right foot (principal); M25.512 Pain in left shoulder; M25.511 Pain in right shoulder; M79.18 Myalgia, other site; J44.9 Chronic obstructive pulmonary disease, unspecified; I10 Essential (primary) hypertension; I48.91 Unspecified atrial fibrillation; Z79.899 Other long term (current) drug therapy
CPT/HCPCS: 73600; 99283

== ENCOUNTER 2019-04-21 17:23 | Emergency (ER) | payer MEDICARE ==
[~2019-04-21] VITALS: Ht 162.6 cm; Wt 100.0 kg
[~2019-04-21 17:23] MED LIST changes: -ALPR-339 PO
[2019-04-21] MEDS ORDERED: SODIUM CHLORIDE 0.9% 1,000 ML IV ONE (18:35)
[2019-04-21 19:14] LABS: BASOPHILS % 0.5 % (0.0-2.0); EOSINOPHILS % 1.3 % (0.0-5.0); HEMATOCRIT. 38.5 % (36.0-48.0); HEMOGLOBIN. 12.8 g/dL (12.0-16.0); LYMPHOCYTES % 27.6 % (20.0-50.0); MEAN CORPUSCULAR HEMOGLOBIN 28.6 pg (28.0-32.0); MEAN CORPUSCULAR VOLUME 85.5 fL (81.0-99.0); MEAN PLATELET VOLUME 8.1 fl (7.4-10.4); NEUTROPHILS % 62.6 % (40.0-76.0); PLATELET 228 x1000/uL (130-400); RED CELL DISTRIBUTION WIDTH 17.8 % (11.6-14.6)
[2019-04-21 19:22] LABS: CHLORIDE 110 mEq/L (98-107); INR 1.1; PARTIAL THROMBOPLASTIN TIME 30.9 sec (23.4-31.0); PROTHROMBIN TIME 11.6 sec (9.6-11.0)
[2019-04-21] MEDS ORDERED: CLONIDINE 0.2MG TABLET PO ONE (19:30)
[2019-04-21 21:39] LABS: CLARITY URINE CLEAR (CLEAR); COLOR URINE YELLOW (YELLOW); KETONES URINE NEGATIVE (NEGATIVE); LEUKOCYTE ESTERASE URINE TRACE (NEGATIVE); NITRITE URINE NEGATIVE (NEGATIVE); OCCULT BLOOD URINE NEGATIVE (NEGATIVE); PH URINE 6.5 (4.5-8.0); PROTEIN URINE NEGATIVE (NEGATIVE); SPECIFIC GRAVITY URINE 1.009 (1.005-1.030); UROBILINOGEN URINE 0.2 E.U./dL (0.2-1.0)
[2019-04-22 05:30] VITALS: BP 131/65
[2019-04-23] MEDS ORDERED: ALPR-339 PO ×2 (18:43→22:14)
== END 2019-04-22 05:45 ==
LOC: ER 17:23
DX: I73.9 Peripheral vascular disease, unspecified (principal); I48.91 Unspecified atrial fibrillation; J44.9 Chronic obstructive pulmonary disease, unspecified; I10 Essential (primary) hypertension; Z79.01 Long term (current) use of anticoagulants
CPT/HCPCS: 36415; 80053; 81003; 83690; 85025; 85610; 85730; 87086; 93005; 93923; 93970; 99284; J7030

== ENCOUNTER 2019-04-23 18:48 | Inpatient (IN) | payer MEDICARE ==
[~2019-04-23] VITALS: Ht 167.6 cm; Wt 88.9 kg
[2019-04-23 18:30] VITALS: BP 182/76
[~2019-04-23 18:48] MED LIST changes: +ALPR-339 PO
[2019-04-23] MEDS: AMLODIPINE 10MG TABLET PO SCH (19:01)
[2019-04-23 20:00] VITALS: BP 139/92
[2019-04-23 20:44] LABS: BASOPHILS % 0.6 % (0.0-2.0); EOSINOPHILS % 1.3 % (0.0-5.0); HEMATOCRIT. 38.8 % (36.0-48.0); HEMOGLOBIN. 12.7 g/dL (12.0-16.0); LYMPHOCYTES % 31.7 % (20.0-50.0); MEAN CORPUSCULAR HEMOGLOBIN 28.4 pg (28.0-32.0); MEAN CORPUSCULAR VOLUME 86.7 fL (81.0-99.0); MEAN PLATELET VOLUME 8.3 fl (7.4-10.4); MONOCYTES % 8.7 % (2.0-8.0); NEUTROPHILS % 57.7 % (40.0-76.0); PLATELET 216 x1000/uL (130-400); RED BLOOD CELL COUNT 4.47 mill/uL (4.2-5.4); RED CELL DISTRIBUTION WIDTH 17.4 % (11.6-14.6)
[2019-04-23 20:50] LABS: INR 1.1; PARTIAL THROMBOPLASTIN TIME 30.8 sec (23.4-31.0); PROTHROMBIN TIME 11.7 sec (9.6-11.0)
[2019-04-23] MEDS ORDERED: TRAMADOL 50MG TABLET PO PRN (22:00)
[2019-04-23] MEDS ORDERED: MEDICATION NOT ON FORMULARY EA (Alprazolam 0.25 MG) PO PRN (22:00)
[2019-04-23] MEDS ORDERED: CLONIDINE 0.1MG TABLET PO PRN (22:00)
[2019-04-23] MEDS ORDERED: ACETAMINOPHEN 325MG TABLET PO PRN (22:00)
[2019-04-23] MEDS ORDERED: ALBUTEROL 6.7GM HFA INHALER INH PRN (22:00)
[2019-04-23] MEDS ORDERED: ALPR-339 PO (22:14)
[2019-04-24] VITALS: BP 103/57
[2019-04-24] MEDS ORDERED: ALBUTEROL (0.083%) 2.5MG/3ML NEB HHN PRN (00:30)
[2019-04-24] MEDS: HYDROCODONE/ACETAMINOPHEN 5/325MG TABLET PO PRN ×2 (00:31→16:55)
[2019-04-24] MEDS: ALPRAZOLAM 0.25 MG TABLET PO PRN ×2 (00:31→13:10)
[2019-04-24 04:00] VITALS: BP 145/77
[2019-04-24 08:00] VITALS: BP 122/65
[2019-04-24] MEDS: GABAPENTIN 400MG CAPSULE PO SCH ×3 (08:35→16:55)
[2019-04-24] MEDS: AMLODIPINE 10MG TABLET PO SCH (08:35)
[2019-04-24] MEDS: LISINOPRIL 20MG TABLET PO SCH ×2 (08:36→20:12)
[2019-04-24 12:00] VITALS: BP 126/60
[2019-04-24 16:00] VITALS: BP 136/55
[2019-04-24 20:00] VITALS: BP 113/55
[2019-04-24] MEDS ORDERED: CAPSAICIN 0.025% CREAM 60GM TOP PRN (20:30)
[2019-04-24 23:43] LABS: BASOPHILS % 0.9 % (0.0-2.0); EOSINOPHILS % 2.2 % (0.0-5.0); HEMATOCRIT. 37.8 % (36.0-48.0); HEMOGLOBIN. 12.4 g/dL (12.0-16.0); LYMPHOCYTES % 31.2 % (20.0-50.0); MEAN CORPUSCULAR HEMOGLOBIN 28.7 pg (28.0-32.0); MEAN PLATELET VOLUME 7.9 fl (7.4-10.4); MONOCYTES % 9.2 % (2.0-8.0); NEUTROPHILS % 56.5 % (40.0-76.0); PLATELET 218 x1000/uL (130-400); RED BLOOD CELL COUNT 4.34 mill/uL (4.2-5.4); RED CELL DISTRIBUTION WIDTH 17.5 % (11.6-14.6)
[2019-04-24 23:52] LABS: CHLORIDE 112 mEq/L (98-107)
[2019-04-24 23:59] LABS: LDL CHOLESTEROL 69 mg/dL (5-100)
[2019-04-25] VITALS: BP 150/76
[2019-04-25] LABS: HDL CHOLESTEROL 51 mg/dL (40-59)
[2019-04-25 04:00] VITALS: BP 134/71
[2019-04-25] MEDS: HYDROCODONE/ACETAMINOPHEN 5/325MG TABLET PO PRN (05:42)
[2019-04-25 08:00] VITALS: BP 115/68
[2019-04-25] MEDS: AMLODIPINE 10MG TABLET PO SCH (08:11)
[2019-04-25] MEDS: GABAPENTIN 400MG CAPSULE PO SCH ×3 (08:11→17:39)
[2019-04-25] MEDS: LISINOPRIL 20MG TABLET PO SCH ×2 (08:11→21:16)
[2019-04-25 11:59] VITALS: BP 112/55
[2019-04-25 13:36] LABS: CLARITY URINE CLOUDY (CLEAR); COLOR URINE YELLOW (YELLOW); KETONES URINE NEGATIVE (NEGATIVE); LEUKOCYTE ESTERASE URINE 2+ (NEGATIVE); NITRITE URINE NEGATIVE (NEGATIVE); OCCULT BLOOD URINE NEGATIVE (NEGATIVE); PH URINE 5.5 (4.5-8.0); PROTEIN URINE NEGATIVE (NEGATIVE); SPECIFIC GRAVITY URINE 1.014 (1.005-1.030); UROBILINOGEN URINE 0.2 E.U./dL (0.2-1.0)
[2019-04-25] MEDS: ALPRAZOLAM 0.25 MG TABLET PO PRN (14:08)
[2019-04-25 16:00] VITALS: BP 108/47
[2019-04-25 18:45] LABS: VITAMIN B12 SERUM 375 pg/mL (211-911)
[2019-04-25 20:00] VITALS: BP 133/64
[2019-04-26 08:00] VITALS: BP 156/76
[2019-04-26] MEDS: GABAPENTIN 400MG CAPSULE PO SCH ×3 (09:23→17:28)
[2019-04-26] MEDS: HYDROCODONE/ACETAMINOPHEN 5/325MG TABLET PO PRN (09:24)
[2019-04-26] MEDS: AMLODIPINE 10MG TABLET PO SCH (09:24)
[2019-04-26] MEDS: LISINOPRIL 20MG TABLET PO SCH ×2 (09:25→20:06)
[2019-04-26 12:00] VITALS: BP 145/67
[2019-04-26 16:00] VITALS: BP 113/60
[2019-04-26 16:49] VITALS: BP 113/60
[2019-04-26 20:00] VITALS: BP 142/66
[2019-04-26] MEDS ORDERED: SULFAMETHOXAZOLE/TRIMETHOPRIM 800/160MG TABLET PO SCH (20:00)
== END 2019-04-26 20:36 | DRG 554 ==
LOC: 6EST 18:48
PROVIDERS: ADMIT Family Medicine; ATTEND Family Medicine
DX: M13.0 Polyarthritis, unspecified (principal); N39.0 Urinary tract infection, site not specified; E66.01 Morbid (severe) obesity due to excess calories; I11.9 Hypertensive heart disease without heart failure; J44.9 Chronic obstructive pulmonary disease, unspecified; G89.29 Other chronic pain; M54.5 Low back pain; R26.2 Difficulty in walking, not elsewhere classified; F41.1 Generalized anxiety disorder; I48.91 Unspecified atrial fibrillation; Z96.611 Presence of right artificial shoulder joint; I69.30 Unspecified sequelae of cerebral infarction; Z68.31 Body mass index [BMI] 31.0-31.9, adult
CPT/HCPCS: 36415; 71045; 73030; 73521; 80061; 81003; 82607; 83036; 83880; 84443; 85651; 97162; A6261